=== PATIENT | female | born 1985 | race African-American/Black ===

== ENCOUNTER 2020-04-02 12:01 | Emergency (ER) | payer SELFPAY ==
[~2020-04-02] VITALS: Ht 172.7 cm; Wt 127.0 kg
[2020-04-02 12:11] VITALS: BP 120/74
--- NOTE | 2020-04-02 12:15 | NUR ---
ED Nurse Note: PT walked in to ed for C/O redness to right eye since yesterday due to sleeping with contacts lenses in at night time. currently pt is not wearing her eye contact lenses.
--- NOTE | 2020-04-02 12:26 | Emergency Room Report ---
History of Present Illness General Chief Complaint: Eye Problems Source: Patient Present Illness HPI Patient is a 34-year-old female who presents for increased right-sided eye redness and discomfort. Had recently fallen asleep with her contact lenses then. Reports of increased pain to the right eye. Reports having increased redness as well as some discharge. Some mild foreign body sensation. Denies any nausea or vomiting. No prior history of glaucoma. Reports having some increased vision blurriness. States he feels like there is a film on the outside of her eye. She reports not wearing her contact lens after noticed the redness. 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 COVID-19 Screening: Negative COVID-19 COVID-19 Testing Source: rapid Patient History Past Medical History: see triage record Reviewed Nursing Documentation: PMH: Agreed; PSxH: Agreed Nursing Documentation-PMH Past Medical History: No Stated History Review of Systems All Other Systems: negative except mentioned in HPI Physical Exam Vital Signs Date Time Temp Pulse Resp B/P (MAP) Pulse Ox O2 Delivery O2 Flow Rate FiO2 04/02/20 12:08 98.8 91 17 112/71 (85) 96 Room Air General Appearance: well appearing, no apparent distress, alert, GCS 15, non- toxic Head: normocephalic, atraumatic Eyes: bilateral eye other - Right eye injected conjunctiva with normal reactive pupil. No photophobia. ENT: hearing grossly normal, normal voice Neck: full range of motion, supple Respiratory: no respiratory distress, speaking full sentences Cardiovascular #1: normal inspection, no edema, no gallop Gastrointestinal: normal inspection, soft Musculoskeletal: no calf tenderness Neurologic: alert, motor strength/tone normal, uke driver III-XII nml as tested, oriented x3, normal gait Psychiatric: normal inspection, mood/affect normal Skin: no rash Medical Decision Making Diagnostic Impression: Primary Impression: Conjunctivitis ER Course Patient presented for right eye redness. Differential diagnosis included but wasn't limited to glaucoma, iritis, corneal abrasion, bacterial conjunctivitis, viral conjunctivitis. Patient's history is consistent with possible corneal abrasion. Fluorescein dye exam showed no dye uptake. Patient does not appear to have any evidence of glaucoma and intraocular pressure was noted to be 8. Patient given prescription for topical antibiotics. She was advised to follow- up with software support engineer in the next 1 to 2 days for recheck. She is to return if worse. This medical record is generated with [employer] installation drafter software. There may be some installation drafter discrepancies related to use of this software Last Vital Signs Date Time Temp Pulse Resp B/P (MAP) Pulse Ox O2 Delivery O2 Flow Rate FiO2 04/02/20 12:11 98.2 86 16 120/74 97 Room Air Status: improved Disposition: HOME, SELF-CARE Condition: Stable Scripts Ofloxacin (OFLOXACIN) 5 Ml Drops 5 ML OT EVERY 4 HOURS, #5 ML Prov: Ravin Sanders MD 04/02/20 Olopatadine HCl (Olopatadine HCl) 5 Ml Drops 5 ML OP EVERY 4 HOURS, #5 ML Prov: Ravin Sanders MD 04/02/20 Ravin Sanders MD Apr 02, 2020 12:26
[2020-04-02] MEDS ORDERED: Tetracaine 0.5% Opth 4ml Soln RIGHT EYE ONE (12:30)
[2020-04-02] MEDS ORDERED: Fluorescein Strips RIGHT EYE ONE (12:30)
[2020-04-02] MEDS ORDERED: OLOPATADINE HCL5 ML OP (13:02)
[2020-04-02] MEDS ORDERED: OFLOXACIN5 ML OT (13:02)
[2020-04-02 13:10] VITALS: BP 130/84
--- NOTE | 2020-04-02 13:10 | NUR ---
ER DISCHARGE NOTE: Patient is cleared to be discharged per ERMD, pt is aox4, on room air, with stable vital signs. pt was given dc and prescription instructions, pt was able to verbalize understanding, pt id band removed without complications. pt is able to ambulate with steady gait. pt took all belongings.
== END 2020-04-02 13:10 | disposition home or self-care (01) ==
LOC: EMR 12:25
DX: H10.9 Unspecified conjunctivitis (principal)
CPT/HCPCS: 99282